=== PATIENT | female | born 1980 | race Caucasian/White ===

== ENCOUNTER → 2019-05-26 | Outpatient (CLI) | payer BC ==
--- NOTE | 2019-05-26 14:25 | PCVCIMAG ---
APPROVED REPORT Study performed: 05/26/2019 13:51:14 Exam: Stress Echocardiogram Indication: PSVT, chest tightness/pressure, tobacco use, fam hx cad, palpitations Patient Location: Echo lab Stress Nurse: Radha Nettles RN Status: routine Ht: 5 ft 7 in HR: 107 bpm BP: 142/92 mmHg Rhythm: Tachycardia Procedure The patient underwent an Exercise Stress Test using the Steven Protocol. Blood pressure, heart rate, and EKG were monitored. An Echocardiogram was performed by entry level installation technician in four stages in quad fashion. At peak stress, four selected images were obtained and placed side by side with resting images for comparison. Stress Test Details Stress Test: Exercise stress testing was performed using a Steven protocol. HR Resting HR: 107 bpmMax Heart Rate (APMHR): 180 bpm Max HR Achieved: 155 bpmTarget HR (85% APMHR): 153 bpm % of APMHR: 86 Recovery HR: 118 bpm HR response to stress: Normal HR response to stress BP Resting BP: 142/92 mmHg Max BP: 188/92 mmHg Recovery BP: 152/80 mmHg BP response to stress: Normal blood pressure response to stress. ECG Resting ECG: Sinus Tachycardia Stress ECG: Sinus Rhythm ST Change: Normal Maximum ST Deviation: 0 mm Arrhythmia: PVCs Recovery ECG: Sinus Tachycardia Recovery ST Change: Normal Recovery ST Deviation: 0 mm Recovery Arrhythmia: PVCs Clinical Reason for Termination: Maximal effort, Dyspnea Stress Symptoms: Dyspnea Exercise duration: 7 min 25 sec Highest Stage Achieved: Stage 3: 3.4 mph at 14% grade. Exercise capacity: 10.1 METs Overall Exercise Capacity for Age: Normal Scale: Sedentary Angina Score: None Stress ECG Conclusion Clinical: Non-ischemic ECG: Non-ischemic Alejandre Treadmill Score is 7.0 which is Low risk. Pre-Stress Echo The resting Echocardiogram showed normal left ventricular contractility with an estimated Ejection Fraction of about >55%. The resting echocardiogram demonstrated normal wall motion in all wall segments. Post-Stress Echo The stress Echocardiogram showed normal left ventricular contractility with an estimated Ejection Fraction of about 65%. Compared to rest, there were no stress-induced wall motion abnormalities. Clinical No clinical or ECG evidence for ischemia. Conclusion Clinical Response: Non-ischemic Exercise Capacity: Average Stress ECG Response: Non-ischemic Stress Echo Images: Non-ischemic The left ventricle is normal in size and wall thickness in both the rest and stress images. Normal stress echocardiogram with maximal exercise stress. Other Information Study Quality: Adequate <Conclusion> The left ventricle is normal in size and wall thickness in both the rest and stress images. Normal stress echocardiogram with maximal exercise stress.
--- NOTE | 2019-05-26 14:27 | PCVCIMAG ---
APPROVED REPORT Study performed: 05/26/2019 13:11:15 EXAM: Comprehensive 2D, Doppler, and color-flow Echocardiogram Patient Location: Echo lab Status: routine BSA: 2.11 HR: 102 bpmBP: 142/92 mmHg Rhythm: Tachycardia Other Information Study Quality: Adequate Indications Chest Pressure Palpitations Fatigue PSVT 2D Dimensions IVSd: 11.07 (7-11mm) LVDd: 38.86 mm PWd: 11.30 (7-11mm)Ascending Ao: 30.88 (22-36mm) LVDs: 26.67 (25-40mm) Left Atrium: 38.68 (27-40mm) Aortic Root: 33.74 mm LV Single Plane 4CH: 72.24 % LV Single Plane 2CH: 65.71 % Biplane EF: 69.6 % Volumes Left Atrial Volume (Systole) Single Plane 4CH: 50.51 mLSingle Plane 2CH: 57.83 mL LA ESV Index: 27.00 mL/m2 Aortic Valve AoV Peak Juan.: 2.02 m/s AO Peak Gr.: 16.36 mmHgLVOT Max P.39 mmHg LVOT Max V: 1.45 m/s Mitral Valve E/A Ratio: 1.2 MV Decel. Time: 244.89 ms MV E Max Juan.: 0.94 m/s MV A Juan.: 0.77 m/s IVRT: 83.04 ms Pulmonary Valve PV Peak Juan.: 1.30 m/sPV Peak Gr.: 6.80 mmHg Pulmonary Vein P Vein S: 0.49 m/sP Vein A: 0.35 m/s P Vein D: 0.52 m/sP Vein A Dur.: 124.6 msec P Vein S/D Ratio: 0.94 Tricuspid Valve TR Peak Juan.: 2.40 m/s TR Peak Gr.: 23.02 mmHg Left Ventricle The left ventricle is normal size. There is normal LV segmental wall motion. There is normal left ventricular wall thickness. Left ventricular systolic function is normal. The left ventricular ejection fraction is within the normal range. LVEF is 65%. The left ventricular diastolic function is normal. Right Ventricle The right ventricle is normal size. The right ventricular systolic function is normal. Atria The left atrium size is normal. The right atrium size is normal. Aortic Valve The aortic valve is normal in structure. No aortic regurgitation is present. There is no aortic valvular stenosis. Mitral Valve The mitral valve is normal in structure. There is no mitral valve regurgitation noted. No evidence of mitral valve stenosis. Tricuspid Valve The tricuspid valve is normal in structure. Trace tricuspid regurgitation with PAP of 30 mmHg. Pulmonic Valve The pulmonary valve is normal in structure. There is no pulmonic valvular regurgitation. Great Vessels The aortic root is normal in size. IVC is normal in size and collapses >50% with inspiration. Pericardium There is no pericardial effusion. There is no pleural effusion. <Conclusion> 1. Normal echocardiogram with Doppler. Ejection fraction 65%. 2. Structural valvular disease was absent. No significant regurgitant or stenotic lesions. 3. Pulmonary artery systolic pressure of approximately 30 mmHg. 4. No pericardial effusion.
== END | disposition home or self-care (01) ==
LOC: PCVCIMAG 13:16
PROVIDERS: ATTEND Internal Medicine
DX: I10 Essential (primary) hypertension (principal); I47.1 Supraventricular tachycardia; I25.10 Atherosclerotic heart disease of native coronary artery without angina pectoris; K21.9 Gastro-esophageal reflux disease without esophagitis; E78.5 Hyperlipidemia, unspecified; Z90.710 Acquired absence of both cervix and uterus; Z79.899 Other long term (current) drug therapy; Z82.49 Family history of ischemic heart disease and other diseases of the circulatory system; Z72.0 Tobacco use; Z88.6 Allergy status to analgesic agent; Z88.8 Allergy status to other drugs, medicaments and biological substances
CPT/HCPCS: 93306; 93351